=== PATIENT | female | born 1995 | race Caucasian/White ===

== ENCOUNTER 2018-12-06 20:22 | Emergency (ER) | payer BC, MEDICAID ==
[~2018-12-06] VITALS: Ht 162.6 cm; Wt 50.8 kg
[2018-12-06 20:30] VITALS: BP_SYST 151
[2018-12-06 20:32] VITALS: BP_SYST 122
[2018-12-06] MEDS: ONDANSETRON HCL 4 MG/2 ML VIAL IVP ONE ×2 (21:32→23:29)
[2018-12-06] MEDS: NACL 0.9% 1,000 ML IV ONE ×2 (21:33→23:29)
[2018-12-06 21:54] LABS: HEMOGLOBIN 13.8 g/dL (12.0-16.0); RED BLOOD CELL COUNT(AUTO) 4.39 MIL/uL (4.2-6.2); WHITE BLOOD COUNT (AUTO) 14.4 K/uL (4.8-10.8)
[2018-12-06 21:55] LABS: HEMATOCRIT 40.5 % (36-48); LYMPHOCYTES # (AUTO) 0.4 K/uL (1.0-5.5); MEAN CORPUSCULAR HEMOGLOBIN 32 pg (27-31); MEAN CORPUSCULAR HGB CONC 34 % (32-36); MEAN CORPUSCULAR VOLUME 92 fL (79.0-98.0); MONOCYTES # (AUTO) 0.2 K/uL (0.0-1.0); MONOCYTES % (AUTO) 1.5 % (1.7-9.3); NEUTROPHILS # (AUTO) 13.8 K/uL (1.8-7.7); NEUTROPHILS % (AUTO) 95.5 % (40.0-70.0); PLATELET COUNT (AUTO) 186 K/uL (130-430); RED CELL DISTRIBUTION WIDTH 12.6 % (9.0-15.0)
[2018-12-06 22:02] LABS: CALCIUM 9.7 mg/dL (8.4-11.0); CREATININE 0.99 mg/dL (0.55-1.30); POTASSIUM 3.9 mmol/L (3.5-5.1)
[2018-12-06 22:09] LABS: ALBUMIN 4.8 g/dL (3.4-4.8); TOTAL BILIRUBIN 0.7 mg/dL (0.0-1.0)
[2018-12-06 22:11] LABS: INR 1.1 (0.8-1.2); PROTHROMBIN TIME 10.6 SECS (9.5-12.5)
[2018-12-06 22:27] LABS: CLARITY/URINE CLEAR (CLEAR); COLOR,URINE YELLOW (YELLOW); PROTEIN URINE TRACE (NEGATIVE)
[2018-12-06 22:28] LABS: BILIRUBIN,URINE NEGATIVE (NEGATIVE); BLOOD, URINE 3+ (NEGATIVE); GLUCOSE,URINE NEGATIVE (NEGATIVE); KETONES,URINE 3+ (NEGATIVE); LEUKOCYTE ESTERASE ,URINE TRACE (NEGATIVE); NITRITE, URINE NEGATIVE (NEGATIVE)
[2018-12-06 22:34] LABS: BACTERIA,URINE FEW /HPF (None Seen)
[2018-12-06] MEDS: CEPHALEXIN 500 MG CAPSULE PO ONE (23:30)
[2018-12-07 01:00] VITALS: BP_SYST 118
[2018-12-07] MEDS: METOCLOPRAMIDE HCL 10 MG/2 ML VIAL IVP ONE (01:02)
== END 2018-12-07 01:00 | disposition home or self-care (01) ==
LOC: SED 20:22
DX: N39.0 Urinary tract infection, site not specified (principal); R11.2 Nausea with vomiting, unspecified
CPT/HCPCS: 36415; 74176; 80053; 81000; 81025; 83690; 85025; 85610; 96361 ×2; 96374; 96375; 96376; 99284; J2405; J2765; J7030

== ENCOUNTER 2018-12-08 11:55 | Emergency (ER) | payer BC, MEDICAID ==
[~2018-12-08] VITALS: Ht 162.6 cm; Wt 49.9 kg
--- NOTE | 2018-12-08 11:57 | NUR ---
Patient to ER bed 05 to gown for evaluation. Side rails up.
--- NOTE | 2018-12-08 12:00 | NUR ---
Pt brought by self ,A&Ox4, pt presents to ER with abdominal pain , N/V, p tpale , skin pink and warm,cap refill <3, VSS, respirations even and unlabored.
--- NOTE | 2018-12-08 12:10 | NUR ---
Dr Espinal at bedside examining patient
[2018-12-08 12:11] VITALS: BP_SYST 123
[2018-12-08] MEDS ORDERED: NACL 0.9% 1,000 ML IV ONE ×2 (13:00→14:45)
[2018-12-08] MEDS ORDERED: PANTOPRAZOLE SODIUM 40 MG/VIAL (PROTONIX) IVP ONE (13:00)
[2018-12-08] MEDS ORDERED: ONDANSETRON HCL 4 MG/2 ML VIAL IVP ONE (13:00)
[2018-12-08] MEDS ORDERED: KETOROLAC TROMETHAMINE 30 MG VIAL IVP ONE (13:30)
[2018-12-08 14:05] LABS: BASOPHILS % (AUTO) 0.1 % (0.0-2.0); HEMATOCRIT 35.1 % (36-48); HEMOGLOBIN 12.1 g/dL (12.0-16.0); LYMPHOCYTES # (AUTO) 0.9 K/uL (1.0-5.5); LYMPHOCYTES % (AUTO) 7.9 % (20.5-51.5); MEAN CORPUSCULAR HEMOGLOBIN 32 pg (27-31); MEAN CORPUSCULAR HGB CONC 35 % (32-36); MEAN CORPUSCULAR VOLUME 93 fL (79.0-98.0); MONOCYTES # (AUTO) 0.4 K/uL (0.0-1.0); MONOCYTES % (AUTO) 3.9 % (1.7-9.3); NEUTROPHILS # (AUTO) 9.6 K/uL (1.8-7.7); NEUTROPHILS % (AUTO) 88.1 % (40.0-70.0); PLATELET COUNT (AUTO) 157 K/uL (130-430); RED BLOOD CELL COUNT(AUTO) 3.79 MIL/uL (4.2-6.2); RED CELL DISTRIBUTION WIDTH 12.3 % (9.0-15.0); WHITE BLOOD COUNT (AUTO) 10.9 K/uL (4.8-10.8)
[2018-12-08 14:14] LABS: CALCIUM 8.7 mg/dL (8.4-11.0); CREATININE 0.87 mg/dL (0.55-1.30); POTASSIUM 3.3 mmol/L (3.5-5.1)
[2018-12-08 14:21] LABS: ALBUMIN 4.5 g/dL (3.4-4.8); TOTAL BILIRUBIN 0.5 mg/dL (0.0-1.0)
--- NOTE | 2018-12-08 14:28 | NUR ---
PT STATES SHE FEELS BETTER AFTER PAIN MEDICATION. PT COMPLAINING OF SOME NAUSEA. DR GUERRERO AWARE.
[2018-12-08] MEDS ORDERED: METOCLOPRAMIDE HCL 10 MG/2 ML VIAL IVP ONE (14:45)
[2018-12-08 15:42] VITALS: BP_SYST 123
--- NOTE | 2018-12-08 15:42 | NUR ---
Patient given written and verbal discharge instructions and verbalizes understanding. ER MD discussed with patient the results and treatment provided. Patient in stable condition. ID arm band removed. IV catheter removed intact and dressing applied, no active bleeding. Rx of ZOFRAN, REGLAN, AND PROTONIX given. Patient educated on pain management and to follow up with PMD. Pain Scale 3/10 TOLERABLE. Opportunity for questions provided and answered. Medication side effect fact sheet provided.
== END 2018-12-08 15:42 | disposition home or self-care (01) ==
LOC: SED 11:55
DX: K29.70 Gastritis, unspecified, without bleeding (principal); G43.A0 Cyclical vomiting, in migraine, not intractable
CPT/HCPCS: 36415; 80053; 81025; 83690; 85025; 96361; 96374; 96375; 99283; C9113; J1885; J2405; J2765; J7030

== ENCOUNTER 2022-04-03 10:06 | Inpatient (IN) | payer BC, MEDICAID ==
[~2022-04-03] VITALS: Ht 165.1 cm; Wt 51.3 kg
[2022-04-03 10:15] VITALS: BP_SYST 127
[2022-04-03] MEDS ORDERED: PANTOPRAZOLE SODIUM 40 MG/VIAL (PROTONIX) IVP ONE (10:30)
[2022-04-03] MEDS ORDERED: ONDANSETRON HCL 4 MG/2 ML VIAL IVP ONE (11:00)
[2022-04-03 11:06] LABS: BASOPHILS # (AUTO) 0.1 K/uL (0.0-0.2); BASOPHILS % (AUTO) 0.4 % (0.0-2.0); HEMATOCRIT 39.5 % (36-48); HEMOGLOBIN 13.3 g/dL (12.0-16.0); LYMPHOCYTES # (AUTO) 0.8 K/uL (1.0-5.5); LYMPHOCYTES % (AUTO) 5.9 % (20.5-51.5); MEAN CORPUSCULAR HEMOGLOBIN 32 pg (27-31); MEAN CORPUSCULAR HGB CONC 34 % (32-36); MEAN CORPUSCULAR VOLUME 94 fL (79.0-98.0); MONOCYTES # (AUTO) 0.3 K/uL (0.0-1.0); MONOCYTES % (AUTO) 1.8 % (1.7-9.3); NEUTROPHILS # (AUTO) 13.2 K/uL (1.8-7.7); NEUTROPHILS % (AUTO) 91.9 % (40.0-70.0); PLATELET COUNT (AUTO) 308 K/uL (130-430); RED CELL DISTRIBUTION WIDTH 12.6 % (9.0-15.0); WHITE BLOOD COUNT (AUTO) 14.4 K/uL (4.8-10.8)
[2022-04-03] MEDS ORDERED: LORazepam 2 MG/ML VIAL IVP ONE (11:30)
[2022-04-03 11:41] LABS: ALBUMIN 4.4 g/dL (3.4-4.8); CALCIUM 9.7 mg/dL (8.4-11.0); CREATININE 1.08 mg/dL (0.55-1.30); TOTAL BILIRUBIN 0.5 mg/dL (0.0-1.0)
[2022-04-03 12:08] LABS: BILIRUBIN,URINE NEGATIVE (NEGATIVE); BLOOD, URINE NEGATIVE (NEGATIVE); COLOR,URINE YELLOW (YELLOW); GLUCOSE,URINE NEGATIVE (NEGATIVE); KETONES,URINE 3+ (NEGATIVE); LEUKOCYTE ESTERASE ,URINE TRACE (NEGATIVE); NITRITE, URINE NEGATIVE (NEGATIVE); PH,URINE 8.5 (5.0-8.0); PROTEIN URINE NEGATIVE (NEGATIVE); UROBILINOGEN,URINE 0.2 (0.2-1.0)
[2022-04-03 12:11] LABS: CLARITY/URINE SLIGHTLY HAZY (CLEAR)
[2022-04-03 12:29] LABS: RBC,URINE 0-3 /HPF (0-3)
[2022-04-03 12:30] LABS: BACTERIA,URINE FEW /HPF (None Seen)
[2022-04-03] MEDS ORDERED: cefTRIAXone 1 GM IVPB PREMIX 50 ML IV ONE (12:45)
[2022-04-03] MEDS ORDERED: NACL 0.9% 1,000 ML IV ONE (12:45)
[2022-04-03 16:15] VITALS: BP_SYST 128
[2022-04-03] MEDS ORDERED: ACETAMINOPHEN 325 MG TABLET PO PRN (17:15)
[2022-04-03] MEDS ORDERED: ONDANSETRON HCL 4 MG/2 ML VIAL IVP PRN (17:15)
[2022-04-03] MEDS ORDERED: HYDROcodone/ACETAMIN 10-325 MG TAB PO PRN (17:15)
[2022-04-03] MEDS ORDERED: NALOXONE HCL 0.4 MG/ML AMP (NARCAN) IVP PRN ×2 (17:15)
[2022-04-03] MEDS ORDERED: HYDROcodone/ACETAMIN 5-325 MG TAB (NORCO/ VICODIN) PO PRN (17:15)
[2022-04-03] MEDS ORDERED: LORazepam 2 MG/ML VIAL IVP PRN (17:15)
[2022-04-03] MEDS ORDERED: cefTRIAXone 1 GM IVPB PREMIX 50 ML IV SCH (17:15)
[2022-04-03] MEDS ORDERED: INSULIN REGULAR, HUMAN 100 UNITS/ML, 3 ML VIAL (humuLIN R) SUBCUT PRN (17:15)
[2022-04-03] MEDS: NORMAL SALINE 5 ML DISP.SYRIN IVF SCH ×2 (22:00)
[2022-04-03 23:21] VITALS: BP_SYST 116
[2022-04-04] MEDS: NORMAL SALINE 5 ML DISP.SYRIN IVF SCH ×2 (06:00)
[2022-04-04 08:23] LABS: CALCIUM 9.3 mg/dL (8.4-11.0); CREATININE 1.03 mg/dL (0.55-1.30)
[2022-04-04 08:38] LABS: BASOPHILS % (AUTO) 0.2 % (0.0-2.0); EOSINOPHILS % (AUTO) 0.1 % (0.0-4.0); HEMATOCRIT 42.3 % (36-48); HEMOGLOBIN 14.1 g/dL (12.0-16.0); LYMPHOCYTES # (AUTO) 1.3 K/uL (1.0-5.5); LYMPHOCYTES % (AUTO) 8.6 % (20.5-51.5); MEAN CORPUSCULAR HEMOGLOBIN 32 pg (27-31); MEAN CORPUSCULAR HGB CONC 33 % (32-36); MEAN CORPUSCULAR VOLUME 95 fL (79.0-98.0); MONOCYTES # (AUTO) 0.6 K/uL (0.0-1.0); MONOCYTES % (AUTO) 4.1 % (1.7-9.3); NEUTROPHILS # (AUTO) 13.5 K/uL (1.8-7.7); PLATELET COUNT (AUTO) 267 K/uL (130-430); RED BLOOD CELL COUNT(AUTO) 4.46 MIL/uL (4.2-6.2); RED CELL DISTRIBUTION WIDTH 12.4 % (9.0-15.0); WHITE BLOOD COUNT (AUTO) 15.6 K/uL (4.8-10.8)
[2022-04-04 08:50] VITALS: BP_SYST 112
== END 2022-04-04 10:30 | disposition left against medical advice (07) | DRG 690 ==
LOC: SED 10:06 → SMU 13:43
PROVIDERS: ADMIT Preventive Medicine Preventive Medicine/Occupational Environmental Medicine; ATTEND Preventive Medicine Preventive Medicine/Occupational Environmental Medicine
DX: N39.0 Urinary tract infection, site not specified (principal); F90.9 Attention-deficit hyperactivity disorder, unspecified type; D72.829 Elevated white blood cell count, unspecified; M51.27 Other intervertebral disc displacement, lumbosacral region; Z20.822 Contact with and (suspected) exposure to COVID-19; R73.9 Hyperglycemia, unspecified; N20.0 Calculus of kidney; Z87.440 Personal history of urinary (tract) infections
CPT/HCPCS: 36415; 76376; 80048; 80053; 81000; 82009; 85025; 87040; 87086; 96374; 96375; 99285; C9113; J0696; J2060; J2405

== ENCOUNTER 2023-05-29 23:50 | Emergency (ER) | payer BC, MEDICAID ==
[~2023-05-29] VITALS: Ht 162.6 cm; Wt 52.2 kg
[2023-05-30 00:38] VITALS: BP_SYST 115; PULSE 91; RESP 16; TEMP 97.8; O2SAT 100
[2023-05-30 01:20] LABS: BILIRUBIN,URINE NEGATIVE (NEGATIVE); BLOOD, URINE NEGATIVE (NEGATIVE); CLARITY/URINE CLEAR (CLEAR); COLOR,URINE YELLOW (YELLOW); GLUCOSE,URINE NEGATIVE (NEGATIVE); KETONES,URINE NEGATIVE (NEGATIVE); LEUKOCYTE ESTERASE ,URINE NEGATIVE (NEGATIVE); NITRITE, URINE NEGATIVE (NEGATIVE); PROTEIN URINE NEGATIVE (NEGATIVE)
[2023-05-30] MEDS: cefTRIAXone 500 MG in LIDOCAINE 1%, 20 ML MDV 1 ML IM ONE (02:09)
[2023-05-30] MEDS ORDERED: DOXY100C5 PO (02:18)
[2023-05-30 02:26] VITALS: BP_SYST 115; PULSE 91; RESP 16; TEMP 97.8; O2SAT 100
== END 2023-05-30 02:26 | disposition home or self-care (01) ==
LOC: SED 23:50
DX: R30.0 Dysuria (principal); Z20.2 Contact with and (suspected) exposure to infections with a predominantly sexual mode of transmission; N89.8 Other specified noninflammatory disorders of vagina; Z79.899 Other long term (current) drug therapy
CPT/HCPCS: 99283; 81001; 87210; 36415; 81025; 87491; 81003; 96372; J0696

== ENCOUNTER 2023-12-06 20:48 | Emergency (ER) | payer BC, MEDICAID ==
[~2023-12-06] VITALS: Ht 162.6 cm; Wt 45.4 kg
[~2023-12-06 20:48] MED LIST: DOXY100C5 PO
[2023-12-06 21:20] VITALS: BP_SYST 128; PULSE 85; RESP 20; TEMP 97.9; O2SAT 98
[2023-12-06] MEDS: NACL 0.9% 1,000 ML IV ONE (21:44)
[2023-12-06 21:45] LABS: BILIRUBIN,URINE 1+ (NEGATIVE); BLOOD, URINE 3+ (NEGATIVE); CLARITY/URINE CLEAR (CLEAR); COLOR,URINE YELLOW (YELLOW); GLUCOSE,URINE NEGATIVE (NEGATIVE); KETONES,URINE 1+ (NEGATIVE); LEUKOCYTE ESTERASE ,URINE TRACE (NEGATIVE); NITRITE, URINE NEGATIVE (NEGATIVE); PH,URINE 6.5 (5.0-8.0); PROTEIN URINE 2+ (NEGATIVE)
[2023-12-06 21:56] LABS: BACTERIA,URINE MODERATE /HPF (None Seen)
[2023-12-06 22:00] LABS: BASOPHILS # (AUTO) 0.1 K/uL (0.0-0.2); BASOPHILS % (AUTO) 0.7 % (0.0-2.0); EOSINOPHILS % (AUTO) 0.1 % (0.0-4.0); HEMATOCRIT 39.6 % (36-48); HEMOGLOBIN 13.5 g/dL (12.0-16.0); LYMPHOCYTES # (AUTO) 0.4 K/uL (1.0-5.5); LYMPHOCYTES % (AUTO) 3.2 % (20.5-51.5); MEAN CORPUSCULAR HEMOGLOBIN 32 pg (27-31); MEAN CORPUSCULAR HGB CONC 34 % (32-36); MEAN CORPUSCULAR VOLUME 94 fL (79.0-98.0); MONOCYTES # (AUTO) 0.4 K/uL (0.0-1.0); MONOCYTES % (AUTO) 2.9 % (1.7-9.3); NEUTROPHILS % (AUTO) 93.1 % (40.0-70.0); PLATELET COUNT (AUTO) 242 K/uL (130-430); RED CELL DISTRIBUTION WIDTH 14.5 % (9.0-15.0); WHITE BLOOD COUNT (AUTO) 13.9 K/uL (4.8-10.8)
[2023-12-06 22:09] LABS: CALCIUM 9.2 mg/dL (8.4-11.0); CREATININE 0.94 mg/dL (0.55-1.30); POTASSIUM 3.5 mmol/L (3.5-5.1)
[2023-12-06] MEDS: MORPHINE 2 MG/ML INJ. SYRINGE IVP ONE (23:06)
[2023-12-06] MEDS: ONDANSETRON HCL 4 MG/2 ML VIAL IVP ONE (23:07)
[2023-12-06] MEDS ORDERED: cefTRIAXone 1 GM VIAL ONE (23:19)
[2023-12-06] MEDS ORDERED: ONDANSETRON HCL 4 MG/2 ML VIAL ONE (23:20)
[2023-12-07] MEDS: cefTRIAXone 1 GM in D5W 50 ML IV ONE (00:04)
[2023-12-07] MEDS: HALOPERIDOL LACTATE 5 MG/ML VIAL IVP ONE (00:10)
[2023-12-07] MEDS: ONDANSETRON HCL 4 MG/2 ML VIAL IVP ONE (00:10)
[2023-12-07] MEDS ORDERED: ONDA-8 TL (01:29)
[2023-12-07] MEDS ORDERED: CIPR500T5 PO (01:29)
[2023-12-07] MEDS ORDERED: TRAM50TA2 PO (01:29)
[2023-12-07 01:45] VITALS: BP_SYST 128; PULSE 85; RESP 20; TEMP 97.9; O2SAT 98
[2023-12-07] MEDS: KETOROLAC TROMETHAMINE 30 MG VIAL IVP ONE (01:59)
== END 2023-12-07 01:35 | disposition home or self-care (01) ==
LOC: SED 20:48
DX: N20.0 Calculus of kidney (principal); N39.0 Urinary tract infection, site not specified; R11.10 Vomiting, unspecified; K63.89 Other specified diseases of intestine
CPT/HCPCS: 99285; 74176; 96375 ×2; 96361; 80048; 81001; 85025; 87040; 87086; 36415; 81025; 83605; 81000; 96365; 96376; 81015; J0696; J2405 ×2; J2270; J7030; J1630; 80307